=== PATIENT | female | born 1990 | race African-American/Black ===

== ENCOUNTER 2024-06-17 16:19 | Emergency (ER) | payer OTHER, SELFPAY ==
[2024-06-17 16:28] VITALS: BP 125/80; PULSE 77; TEMP 37.1; O2SAT 100; BMI 37.4
--- NOTE | 2024-06-17 17:06 | ED.GENADUL1 ---
HPI HPI - General Adult General Chief complaint: Extremity Injury, Upper Stated complaint: Extremity PAIN, Upper Time Seen by Provider: 06/17/24 16:59 Source: patient Mode of arrival: walk-in Limitations: no limitations History of Present Illness HPI narrative: Patient is a 34-year-old female who presents with a chief complaint of pain in the right side neck going to the right shoulder and upper part of the chest on the right side. Pain is worsened with deep breathing or movement. She denies any trauma. She denies any possibility of . She recently had a chest x-ray done in the ER at [facility] 3 days ago. The x-ray was negative. She does not smoke tobacco and is not on any hormonal therapy. Related Data Home Medications ?Medication ?Instructions ?Recorded ?Confirmed ibuprofen 800 mg tablet mg 06/17/24 Previous Rx's ?Medication ?Instructions ?Recorded cyclobenzaprine 10 mg tablet 10 mg PO BID PRN muscle spasm #14 06/17/24 tabs ketorolac 10 mg tablet 10 mg PO TID PRN pain 5 days #15 06/17/24 tabs Allergies Allergy/AdvReac Type Severity Reaction Status Date / Time No Known Drug Allergies Allergy Verified 06/17/24 16:32 Opioid HPI Opioid Management Most Recent Opioid Data: No Data to Display Review of Systems ROS Status of ROS 10 or more systems reviewed and unremarkable except as noted in history and below PFSH PFSH Social History Little interest or pleasure in doing things: not at all Feeling down, depressed, or hopeless: not at all Exam Narrative Exam Narrative: Patient is nondistressed. Her vital signs are stable. There is no midline cervical spine tenderness. She localizes some tenderness in the right paracervical soft tissue. She has a slightly positive Spurling sign on the right. Lung sounds are clear to auscultation bilaterally with good air entry. Heart has regular rate and rhythm. S1-S2 normal abdomen soft. Constitutional Vital Signs, click to edit/add: Last Vital Signs Temp 98.8 F 06/17/24 16:28 Pulse 77 06/17/24 16:28 Resp 20 06/17/24 16:28 BP 125/80 06/17/24 16:28 Pulse Ox 100 06/17/24 16:28 Course Vital Signs Vital signs: Vital Signs Temperature 98.8 F 06/17/24 16:28 Pulse Rate 77 06/17/24 16:28 Respiratory Rate 20 06/17/24 16:28 Blood Pressure 125/80 06/17/24 16:28 Pulse Oximetry 100 06/17/24 16:28 Temperature 98.8 F 06/17/24 16:28 Pulse Rate 77 06/17/24 16:28 Respiratory Rate 20 06/17/24 16:28 Blood Pressure 125/80 06/17/24 16:28 Pulse Oximetry 100 06/17/24 16:28 Medical Decision Making MDM Narrative Medical decision making narrative: Patient presents with right-sided neck pain going into the right shoulder and upper border of the right trapezius that is worsened with mechanical factors. Chest x-ray performed 3 days ago for the same symptoms was reported negative and I have reviewed that report. C-spine x-rays obtained today and no major architectural problem of the cervical spine is noted. This is likely due to muscle strain causing some nerve irritation due to spasm. He is placed on Toradol and Flexeril for the pain and is referred to her PCP for further management. I feel she might benefit from physical therapy and is to contact her primary care provider for that. She may return anytime for worsening symptoms. Discharge Plan Discharge Chief Complaint: Extremity Injury, Upper Clinical Impression: Cervical radiculopathy Patient Disposition: Home, Self-Care Time of Disposition Decision: 17:38 Condition: Good Mode of Transportation: Private Vehicle Prescriptions / Home Meds: New cyclobenzaprine 10 mg tablet 10 mg PO BID PRN (Reason: muscle spasm) Qty: 14 0RF ketorolac 10 mg tablet 10 mg PO TID PRN (Reason: pain) 5 Days Qty: 15 0RF No Action ibuprofen 800 mg tablet Print Language: [place] Instructions: Cervical Radiculopathy (ED) Additional Instructions: Stop taking ibuprofen. Current medications as prescribed. Follow-up with your primary care provider within the next 2 or 3 days for further management. Return for worsening symptoms. Referrals: Zoey Licona NP [Primary Care Provider] - 1 week Discharge Date/Time: 06/17/24 18:06
== END 2024-06-17 18:06 | disposition home or self-care (01) ==
PROVIDERS: Emergency Provider Emergency Medicine; PCP Nurse Practitioner
DX: M54.12 Radiculopathy, cervical region (principal)
CPT/HCPCS: 72040; 99283